=== PATIENT | female | born 1960 | race Caucasian/White ===

== ENCOUNTER → 2017-05-14 | Outpatient (CLI) | payer OTHER ==
[~2017-05-14] MED LIST: HYDROCHLOROTHIA25 M2 PO; NOHOMEMEDICATIONS; NORCO 5-325 TA1 EACH PO; POTASSIUM 25 M25 MEQ PO; PROTONIX40 MG PO; ZPAK PO
== END ==
LOC: M.RAD 12:43
DX: Z78.0 Asymptomatic menopausal state (principal)

== ENCOUNTER → 2017-08-03 | Outpatient (CLI) | payer OTHER | LOC: M.RAD 11:00 | DX: Z12.31 Encounter for screening mammogram for malignant neoplasm of breast (principal) ==

== ENCOUNTER → 2017-09-22 | Outpatient (CLI) | payer OTHER | LOC: M.RAD 11:27 | DX: M25.572 Pain in left ankle and joints of left foot (principal); M79.89 Other specified soft tissue disorders; I10 Essential (primary) hypertension ==

== ENCOUNTER → 2019-01-20 | Outpatient (CLI) | payer OTHER | LOC: M.RAD 09:27 | DX: Z12.31 Encounter for screening mammogram for malignant neoplasm of breast (principal) ==

== ENCOUNTER → 2020-11-14 | Outpatient (CLI) | payer OTHER | LOC: M.RAD 09:47 | PROVIDERS: ATTEND Family Medicine | DX: Z12.31 Encounter for screening mammogram for malignant neoplasm of breast (principal) ==

== ENCOUNTER → 2020-11-19 | Outpatient (CLI) | payer OTHER | LOC: M.ULTRA 14:25 | PROVIDERS: ATTEND Family Medicine | DX: N60.01 Solitary cyst of right breast (principal); N63.10 Unspecified lump in the right breast, unspecified quadrant ==